=== PATIENT | female | born 1955 | race African-American/Black ===

== ENCOUNTER 2020-05-20 15:08 | Emergency (ER) | payer SELFPAY ==
[~2020-05-20] VITALS: Ht 157.5 cm; Wt 68.0 kg
[2020-05-20 15:18] VITALS: BP 125/74
--- NOTE | 2020-05-20 15:18 | NUR ---
ED Nurse Note: Pt ambulated to ED from home c/o left foot swelling, possible bug bite 5 days ago. Pt's VSS, on RA, afebrile on triage.
--- NOTE | 2020-05-20 15:44 | Emergency Room Report ---
History of Present Illness General Chief Complaint: Skin Rash/Abscess Source: Patient Present Illness HPI 64-year-old female presents to the emergency department complaining of 5 out of 10 severity pain, swelling and tenderness to the left ankle and heel progressive x5 days. Patient reports burning sensation. Patient states originally she had moderate itching and was suspicious of a bug bite. Patient reports she gets some relief after taking Motrin. She denies history of trauma or fall, inflammatory disease, arthritis or gout/pseudo gout. Patient denies fevers or chills. She denies paresthesias. She denies obvious rash. She denies calf pain. Pain is exacerbated putting weight on her left heel. She denies bruising. She denies visible skin lesion. Allergies: Coded Allergies: No Known Allergies (Unverified , 05/20/20) COVID-19 Screening Contact w/high risk pt: No Recent Travel to affected area: No Experienced COVID-19 symptoms?: No COVID-19 Testing performed LURER: No Patient History Past Medical History: see triage record Past Surgical History: none Pertinent Family History: none Now: No Reviewed Nursing Documentation: PMH: Agreed; PSxH: Agreed Nursing Documentation-PMH Past Medical History: No Stated History Review of Systems All Other Systems: negative except mentioned in HPI Physical Exam Vital Signs Date Time Temp Pulse Resp B/P (MAP) Pulse Ox O2 Delivery O2 Flow Rate FiO2 05/20/20 15:12 98.2 62 19 125/74 (91) 98 Room Air Sp02 EP Interpretation: reviewed, normal General Appearance: no apparent distress, alert, GCS 15, non-toxic Head: normocephalic, atraumatic Eyes: bilateral eye normal inspection, bilateral eye PERRL ENT: hearing grossly normal, normal voice Neck: full range of motion Respiratory: lungs clear, normal breath sounds, speaking full sentences Cardiovascular #1: regular rate, rhythm, no edema, normal capillary refill Cardiovascular #2: 2+ dorsalis pedis (L) Musculoskeletal: back normal, normal range of motion, gait/station normal, non- tender, swelling - left ankle. Left Heel Neurologic: alert, motor strength/tone normal, oriented x3, sensory intact, responsive, speech normal Psychiatric: judgement/insight normal Skin: no rash, other - mild erythema of the left ankle and heel. Lymphatic: no adenopathy Medical Decision Making PA Attestation Dr. Hughes is my supervising Physician whom patient management has been discussed with. Diagnostic Impression: Primary Impression: Ankle pain, left Qualified Codes: M25.572 - Pain in left ankle and joints of left foot Additional Impression: Cellulitis Qualified Codes: L03.116 - Cellulitis of left lower limb ER Course 64-year-old female presents to the emergency department complaining of 5 out of 10 severity pain, swelling and tenderness to the left ankle and heel progressive x5 days. Patient reports burning sensation. Patient states originally she had moderate itching and was suspicious of a bug bite. Patient reports she gets some relief after taking Motrin. She denies history of trauma or fall, inflammatory disease, arthritis or gout/pseudo gout. Patient denies fevers or chills. She denies paresthesias. She denies obvious rash. She denies calf pain. Pain is exacerbated putting weight on her left heel. She denies bruising. She denies visible skin lesion. Ddx considered but are not limited to Fracture, dislocation, contusion, Sprain/ Strain/Spasm, gout, pseudogout, arthritis, insect bite/cellulitis, inflammatory reaction just to name a few. Vital signs: are WNL, pt. is afebrile H&PE are most consistent with cellulitis vs inflammatory joint vs. MSK injury will perform imaging to r/o fractures/dislocations. ORDERS: - X-ray Left Ankle 3 views - negative for fx, Dislocation, or significant soft tissue injury, per preliminary read in ED, and signed by ALISIA Knapp , my supervising physician has reviewed, and agrees with my interpretation. ED INTERVENTIONS: -Leoncio wrap applied to the left ankle by pathology lab technician. Pt. remains neurovascularly intact. DISCHARGE: At this time pt. is stable for d/c to home. Will provide printed patient care instructions, and any necessary prescriptions. Care plan and follow up instructions have been discussed with the patient prior to discharge. Other X-Ray Diagnostic Results Other X-Ray Diagnostic Results : X-Ray ordered: Left Ankle # of Views/Limited Vs Complete: 3 View Indication: Pain EP Interpretation: Yes ALISIA Xray: Interpretation reviewed, by supervising MD, and agrees with findings. Interpretation: no dislocation, no soft tissue swelling, no fractures Impression: No acute disease Electronically Signed by: Patricia Knapp PA-C Last Vital Signs Date Time Temp Pulse Resp B/P (MAP) Pulse Ox O2 Delivery O2 Flow Rate FiO2 05/20/20 15:18 98.2 19 125/74 98 Room Air 05/20/20 15:12 62 Disposition: HOME, SELF-CARE Condition: Stable Scripts Naproxen* (NAPROXEN*) 500 Mg Tablet 500 MG ORAL TWICE A DAY for 7 Days, #14 TAB Prov: Patricia Knapp 05/20/20 Cephalexin* (KEFLEX*) 500 Mg Capsule 500 MG ORAL EVERY 12 HOURS for 7 Days, #14 CAP 0 Refills Prov: Patricia Knapp 05/20/20 Referrals: [facility] Patient Instructions: Cellulitis, [id number] Additional Instructions: Take medications as directed. Follow up with a Primary Care Provider in 3-5 days, even if your symptoms have resolved. --Please review list of primary care clinics, if you do not already have a primary care provider Return sooner to ED if new symptoms occur, or current symptoms become worse. - Please note that this Emergency Department Report was dictated using [employer]merixcopyholder technology software, occasionally this can lead to erroneous entry secondary to interpretation by the dictation equipment. Patricia Knapp May 20, 2020 15:44
--- NOTE | 2020-05-20 16:23 | NUR ---
ED Nurse Note: x-ray at bedside.
[2020-05-20] MEDS ORDERED: NAPROXEN500 M2 ORAL (16:32)
[2020-05-20] MEDS ORDERED: CEPHALEXIN500 MG ORAL (16:32)
[2020-05-20 17:00] VITALS: BP 125/74
--- NOTE | 2020-05-20 17:00 | NUR ---
ER DISCHARGE NOTE: Patient is cleared to be discharged per ERMD, pt is aox4, on room air, with stable vital signs. pt was given dc and prescription instructions, pt was able to verbalize understanding, pt id band removed. pt is able to ambulate with steady gait. pt took all belongings.
--- NOTE | 2020-05-20 17:32 | Diagnostic Imaging Report ---
Indication: Ankle pain status post injury Technique: XRAY Ankle Compl Min 3v L Comparison: None Findings: Soft tissue swelling noted about the medial malleolus. No acute fractures identified. Ankle mortise is intact on these nonstress views. Imaged portions of the hindfoot demonstrate no acute abnormality. No ankle joint effusion. No radiopaque foreign body. Impression: Soft tissue swelling about the medial malleolus. No evidence of acute fracture or dislocation.
== END 2020-05-20 18:51 | disposition home or self-care (01) ==
LOC: EMR 16:34
DX: L03.116 Cellulitis of left lower limb (principal); M25.572 Pain in left ankle and joints of left foot
CPT/HCPCS: 99283